=== PATIENT | female | born 1955 | race Caucasian/White ===

== ENCOUNTER → 2017-01-09 | Outpatient (CLI) | payer MEDICARE, MEDICAID | END | disposition home or self-care (01) | LOC: D 10:54 | DX: R73.03 Prediabetes (principal) ==

== ENCOUNTER → 2017-10-16 | Outpatient (CLI) | payer MEDICARE, MEDICAID | END | disposition home or self-care (01) | LOC: CARD 13:57 | DX: M47.896 Other spondylosis, lumbar region (principal); M25.552 Pain in left hip; R00.2 Palpitations ==

== ENCOUNTER → 2017-11-05 | Outpatient (CLI) | payer MEDICARE, MEDICAID ==
[~2017-11-05] MED LIST: BACLOFEN20 M1 PO; BUMETANIDE2 MG PO; CYCLOBENZAPRINE10 MG PO; DELTASONE20 M1 PO; DICLOFENAC SOD75 MG PO; Meclizine25 MG PO; NORCO 5-325 TA1 EACH PO; OMEPRAZOLE40 MG PO; TEGRETOL200 MG PO; ZESTRIL40 MG PO; ZYRTEC10 MG PO
--- NOTE | ~2017-11-05 | HM ---
[place], [place] HOLTER MONITOR REPORT NAME: KIERAN REED UNIT #: [id number] ROOM: DOCTOR: CHAYA CAMPOS MD BIRTHDATE: [birth year] DOS: 11/07/2017 INDICATIONS: Palpitations. FINDINGS: A Holter recording of the patient's heartbeat was obtained for 48 hours. The basic rhythm was normal sinus with an average heart rate of 77. Heart rate in sinus rhythm varied from 50 beats per minute to 135 beats per minute. The patient had occasional premature ventricular contractions. No couplets or ventricular tachycardia were recorded. The patient had rare premature atrial contractions. No SVT was seen. The patient did complain of palpitations and dizziness. No specific rhythms corresponded to her symptoms. IMPRESSION: 1. Normal sinus rhythm with occasional premature ventricular contractions. 2. No pathologic arrhythmias noted. CHAYA CAMPOS MD CM:HOLTER:HOLTER MONITOR REPORT [id number] CHAYA CAMPOS MD
== END ==
LOC: CARD 08:55
DX: R00.2 Palpitations (principal)

== ENCOUNTER 2017-11-25 11:52 | Emergency (ER) | payer MEDICARE, MEDICAID ==
[~2017-11-25] VITALS: Ht 160 cm; Wt 104.3 kg
--- NOTE | ~2017-11-25 | EKG ---
[place], [place] ELECTROCARDIOGRAM REPORT NAME: KIERAN REED UNIT #: [id number] ROOM: DOCTOR: RUPINDER CORREA MD BIRTHDATE: [birth year] DOS: 11/25/2017 TIME: 1416 hours. FINDINGS: 1. Normal sinus rhythm at 72 beats per minute. 2. Very low voltage in precordial leads. 3. An abnormal ECG. 4. No previous tracing is available for comparison. RUPINDER CORREA MD CM:EKGRPT:ELECTROCARDIOGRAM REPORT [id number] RUPINDER CORREA MD
[2017-11-25] MEDS ORDERED: BUMETANIDE2 MG PO (11:58)
[2017-11-25] MEDS ORDERED: ZESTRIL40 MG PO (11:59)
[2017-11-25] MEDS ORDERED: OMEPRAZOLE40 MG PO (11:59)
[2017-11-25] MEDS ORDERED: BACLOFEN20 M1 PO (11:59)
[2017-11-25] MEDS ORDERED: DICLOFENAC SOD75 MG PO (12:00)
[2017-11-25] MEDS ORDERED: ZYRTEC10 MG PO (12:00)
[2017-11-25] MEDS ORDERED: Meclizine25 MG PO (12:00)
[2017-11-25] MEDS ORDERED: CYCLOBENZAPRINE10 MG PO (12:01)
[2017-11-25] MEDS ORDERED: NORCO 5-325 TA1 EACH PO (12:01)
[2017-11-25] MEDS ORDERED: TEGRETOL200 MG PO (12:02)
[2017-11-25 13:57] LABS: BASO # 0.1 10*3/uL (0.0-0.1); BASO % 0.7 % (0.0-1.0); EOS # 0.1 10*3/uL (0.0-0.4); EOS % 1.5 % (1.0-4.0); HEMATOCRIT 40.1 % (37.0-47.0); HEMOGLOBIN 13.2 g/dl (12.0-16.0); LYMPH # 2.2 10*3/uL (1.3-4.4); MEAN CELL VOLUME 89.1 fl (81.0-99.0); MEAN CORPUSCULAR HGB 29.3 pg (27.0-31.0); MEAN CORPUSCULAR HGB CONC 32.9 g/dl (33.0-37.0); MEAN PLATELET VOLUME 10.2 fl (9.6-12.3); MONO # 0.5 10*3/uL (0.1-1.0); MONO % 5.4 % (3.0-9.0); NEUT % 67.1 % (47.0-73.0); PLATELET COUNT AUTOMATED 219 10*3/uL (130-400); RED CELL DISTRI WIDTH 13.2 % (0-14.5); WHITE BLOOD COUNT 8.9 10*3/uL (4.8-10.8)
[2017-11-25 14:15] LABS: ALBUMIN 3.4 gm/dl (3.1-4.5); ALKALINE PHOSPHATASE 133 U/L (45-117); BUN 13 mg/dl (7-24); CHLORIDE 98 mmol/L (98-107); POTASSIUM 3.5 mmol/L (3.5-5.1); SGOT/AST 21 IU/L (3-35); SGPT/ALT 28 U/L (12-78); SODIUM 138 mmol/L (136-145); TOTAL PROTEIN 7.6 gm/dL (6.4-8.2)
[2017-11-25] MEDS ORDERED: DELTASONE20 M1 PO (15:33)
== END 2017-11-25 15:36 | disposition home or self-care (01) ==
LOC: ED 11:52
PROVIDERS: Emergency Medicine
DX: R68.84 Jaw pain (principal); G50.0 Trigeminal neuralgia; M31.6 Other giant cell arteritis; R70.0 Elevated erythrocyte sedimentation rate; K08.89 Other specified disorders of teeth and supporting structures; G62.9 Polyneuropathy, unspecified; Z90.710 Acquired absence of both cervix and uterus; Z90.49 Acquired absence of other specified parts of digestive tract; Z98.890 Other specified postprocedural states; Z79.899 Other long term (current) drug therapy; Z88.1 Allergy status to other antibiotic agents; Z88.8 Allergy status to other drugs, medicaments and biological substances

== ENCOUNTER → 2018-07-23 | Outpatient (CLI) | payer MEDICARE ==
[2018-07-23 10:07] LABS: BASO # 0.1 10*3/uL (0.0-0.1); BASO % 0.9 % (0.0-1.0); EOS # 0.1 10*3/uL (0.0-0.4); EOS % 2.1 % (1.0-4.0); HEMATOCRIT 39.1 % (37.0-47.0); HEMOGLOBIN 12.7 g/dl (12.0-16.0); LYMPH # 2.2 10*3/uL (1.3-4.4); LYMPH % 32.5 % (27.0-41.0); MEAN CELL VOLUME 90.7 fl (81.0-99.0); MEAN CORPUSCULAR HGB 29.5 pg (27.0-31.0); MEAN CORPUSCULAR HGB CONC 32.5 g/dl (33.0-37.0); MEAN PLATELET VOLUME 10.1 fl (9.6-12.3); MONO # 0.4 10*3/uL (0.1-1.0); MONO % 5.7 % (3.0-9.0); NEUT % 58.5 % (47.0-73.0); PLATELET COUNT AUTOMATED 223 10*3/uL (130-400); RED BLOOD COUNT 4.31 10*6/uL (4.10-5.10); RED CELL DISTRI WIDTH 12.7 % (0-14.5); WHITE BLOOD COUNT 6.8 10*3/uL (4.8-10.8)
[2018-07-23 10:34] LABS: ALBUMIN 3.1 gm/dl (3.1-4.5); ALKALINE PHOSPHATASE 133 U/L (45-117); BUN 14 mg/dl (7-24); CHLORIDE 100 mmol/L (98-107); CHOLESTEROL 166 mg/dL (<200); HDL CHOLESTEROL 50 mg/dl (40-60); LDL CHOLESTEROL 90 mg/dL (9-159); POTASSIUM 3.2 mmol/L (3.5-5.1); SGOT/AST 23 IU/L (3-35); SGPT/ALT 28 U/L (12-78); SODIUM 139 mmol/L (136-145); TOTAL PROTEIN 7.1 gm/dL (6.4-8.2); TRIGLYCERIDES 129 mg/dl (<150); VLDL CHOLESTEROL 26 mg/dL (6-40)
== END | disposition home or self-care (01) ==
LOC: LAB 09:26
PROVIDERS: Family Medicine
DX: Z13.1 Encounter for screening for diabetes mellitus (principal); G71.3 Mitochondrial myopathy, not elsewhere classified; Z79.899 Other long term (current) drug therapy

== ENCOUNTER 2021-11-25 11:31 | Emergency (ER) | payer MEDICARE ==
[2021-11-25] MEDS ORDERED: ZOFRAN4 MG PO (13:03)
[2021-11-25 13:07] LABS: BASO # 0.1 10*3/uL (0.0-0.1); BASO % 0.4 % (0.0-1.0); EOS % 0.2 % (1.0-4.0); HEMATOCRIT 41.7 % (37.0-47.0); LYMPH # 1.6 10*3/uL (1.3-4.4); LYMPH % 14.5 % (27.0-41.0); MEAN CELL VOLUME 90.3 fl (81.0-99.0); MEAN CORPUSCULAR HGB CONC 32.1 g/dl (33.0-37.0); MEAN PLATELET VOLUME 8.9 fl (9.6-12.3); MONO # 0.9 10*3/uL (0.1-1.0); NEUT # 8.6 10*3/uL (2.3-7.9); NEUT % 76.3 % (47.0-73.0); PLATELET COUNT AUTOMATED 262 10*3/uL (130-400); RED BLOOD COUNT 4.62 10*6/uL (4.10-5.10); RED CELL DISTRI WIDTH 12.9 % (0-14.5); WHITE BLOOD COUNT 11.3 10*3/uL (4.8-10.8)
[2021-11-25 13:21] LABS: ALKALINE PHOSPHATASE 108 U/L (45-117); BUN 8 mg/dl (7-24); CHLORIDE 99 mmol/L (98-107); CREATININE 0.87 mg/dL (0.55-1.02); POTASSIUM 3.3 mmol/L (3.5-5.1); SGOT/AST 22 IU/L (3-35); SGPT/ALT 23 U/L (12-78); SODIUM 134 mmol/L (136-145); TOTAL PROTEIN 7.3 gm/dL (6.4-8.2)
[2021-11-25 15:07] LABS: BILIRUBIN Negative (Negative); BLOOD Negative (Negative); CLARITY Clear (Clear); COLOR Yellow (Yellow); GLUCOSE Negative (Negative); KETONE Trace (Negative); LEUKO ESTERASE Trace (Negative); NITRITE Negative (Negative); PH 5.5 (4.5-8.0); UROBILINOGEN 0.2 E.U./dl (0.0-1.0)
[2021-11-25 15:18] LABS: BACTERIA 1+
== END 2021-11-25 16:25 | disposition home or self-care (01) ==
LOC: ED 11:31
PROVIDERS: Nurse Practitioner Family
DX: B34.9 Viral infection, unspecified (principal); Z20.822 Contact with and (suspected) exposure to COVID-19; Z88.1 Allergy status to other antibiotic agents; Z79.899 Other long term (current) drug therapy; Z90.710 Acquired absence of both cervix and uterus; Z90.49 Acquired absence of other specified parts of digestive tract; Z90.89 Acquired absence of other organs